=== PATIENT | female | born 1955 | race Caucasian/White ===

== ENCOUNTER 2020-04-11 09:39 | Outpatient (REF) | payer MEDICARE, SELFPAY | END 2020-04-11 09:40 | disposition home or self-care (01) | LOC: HO.HMGCLDS 09:39 | PROVIDERS: PCP Internal Medicine; Visit Provider Internal Medicine | DX: Z20.822 Contact with and (suspected) exposure to COVID-19 (principal) | CPT/HCPCS: 36415; C9803; U0003 ==

== ENCOUNTER 2024-10-12 10:27 | Outpatient (REF) | payer MEDICARE, SELFPAY ==
--- NOTE | ~2024-10-12 | XR_ITS ---
EXAMINATION: XR KNEE, LEFT CLINICAL INFORMATION: M25.562 - Pain in left knee COMPARISON: None available. TECHNIQUE: AP lateral and sunrise views of the left knee. FINDINGS: Joint space narrowing involving mostly the medial compartment and to a lesser extent lateral compartment. Small marginal osteophyte formation and medial tibial plateau with sclerosis along the articular surface of the medial tibial plateau. No acute cortical disruption or gross malalignment. No suprapatellar bursa joint effusion. Vascular calcifications, minimal No lytic or blastic lesions.. 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 Electronically signed by: Connor Castro MD 10/12/2024 11:06 AM EDT
== END 2024-10-12 10:28 | disposition home or self-care (01) ==
LOC: HO.HOSX 10:27
PROVIDERS: Visit Provider Orthopaedic Surgery
DX: S83.242A Other tear of medial meniscus, current injury, left knee, initial encounter (principal); M25.562 Pain in left knee; Z79.899 Other long term (current) drug therapy; X58.XXXA Exposure to other specified factors, initial encounter
CPT/HCPCS: 73562; 99202

== ENCOUNTER 2024-10-12 10:52 | Outpatient (AMB) | payer MEDICARE, SELFPAY ==
--- NOTE | 2024-10-12 11:00 | MHC.OFFVIS ---
Vital Signs 10/12/24 11:07 Height 4 ft 11 in Weight 170 lb BMI 34.3 Intake Visit Reasons: Left knee pain and giving way Intake Note: Delores is a 68 year old female who presents with complaints of progressively worsening left knee pain and giving way. The patient describes her pain as sharp in nature. Her symptoms have gotten worse over the last 2 years. She has failed the last 6 weeks of conservative treatment which has included Tylenol, anti-inflammatory medicines, physical therapy exercises and a home exercise program. She has had both cortisone injections and viscosupplementation injections which gave her minimal relief. She states that her left knee will give out several times per day. Allergies No Known Allergies Allergy (Verified 10/12/24 11:04) Medication List - Last Reconciled 10/12/24 by Eren Malagon MD adalimumab (Humira(CF) Pen) 40 mg subcut Q2W amlodipine 5 mg PO DAILY bupropion HCl SR 200 mg PO BID clonazepam 0.5 mg PO BEDTIME clonidine HCl 0.1 mg PO TID ezetimibe 10 mg PO DAILY insulin aspart U-100 (Novolog U-100 Insulin aspart) subcut omeprazole 20 mg PO DAILY simvastatin 80 mg PO QPM valsartan 160 mg PO DAILY PFSH Social History Alcohol intake: never Patient Tobacco Use Status: Never used Tobacco Current occupational status: other Physical Exam Const Other: Well-nourished well-developed very friendly female awake alert and oriented x3 in no acute distress Extrem Other: Bilateral lower extremity examination shows good capillary refill, no skin lesions noted, normal sensation light touch Left knee examination shows a minimal effusion, mild crepitus with range of motion, tenderness along her medial joint line, positive Fanta's test, no instability Results Reviewed Results Reviewed: X-rays of the patient's left knee show mild diffuse joint space narrowing, no acute bony abnormalities MRI of the patient's left knee shows mild diffuse degenerative changes as well as a medial meniscus tear Assessment & Plan Assessment & Plan (1) Tear of medial meniscus of left knee: Code(s): S83.242A - Other tear of medial meniscus, current injury, left knee, initial encounter Category: Medical Plan Ms. Hu presents with progressively worsening left knee pain and mechanical symptoms due to early degenerative joint disease as well as a medial meniscus tear. I had a lengthy discussion with the patient regarding the treatment options. At this point she has failed continued non operative treatments. The risks and benefits of left knee arthroscopic surgery were discussed at length with the patient. The patient wishes to proceed with surgery. Surgery will involve left knee arthroscopic partial medial meniscectomy. She does understand that she may not get 100% relief of her symptoms depending on the severity of her degenerative changes. She will be scheduled for next available date. She will follow-up as instructed. Feel free to call me at any time should questions regarding her orthopedic management arise. I spent 22 minutes in reviewing the patient's records and imaging studies, seeing the patient and documenting in the medical record. Orders: Orders XR knee LT 3V Today M25.562 - Pain in left knee Coding Level of Care Code New Pt Level 3 (52825) Complex EM visit Add On G2211 Diagnoses Tear of medial meniscus of left knee S83.242A
[2024-10-12 11:07] VITALS: BMI 34.3
--- OUTSIDE RECORDS SUMMARY | 2024-10-12 11:52 | XMS_ITS | Data Portability ---
Author Organization [facility] [email or web address], Telehealth Address [address] [place] [address] Assessment No assessment recorded. Plan of Treatment Reminders Order Date Submit Date Provider Last Modified By Organization Details Last Modified Time Details Appointments None record ed. Lab None record ed. Referral None record ed. Procedures None record ed. Surgeries None record ed. Imaging None record ed. Medication Orders None record ed. Patient TargetsNo targets recorded. Patient InstructionsNo instructions recorded. Reason for Referral None Reported. Problems Name Problem SNOMED Code Status Onset Date Resolution Date Notes Provider Name and Address Organization Details Recorded Time Essential hypertension 70086031 Active 2020 [facility] Daniel Samuels [facility] 1 16:33:55 Hyperlipidemia 41027856 Active 2020 [facility] Daniel Zamora [facility] 1 16:34:00 Anxiety 24422342 Active 2020 [facility] Daniel Zamora [facility] 1 16:34:07 Problem Notes None recorded. Medical Equipment None Reported. Allergies No known drug allergies Medications Name Sig Start Date Stop Date Status Note LastModified by Organization Details LastModified Time simvastatin 10 mg tablet Take 1 tablet every day by oral route. active Not Available Not Available No t Available Wellbutrin SR 100 mg tablet, 12 hr sustained-rel ease Take 1 tablet twice a day by oral route. active Not Available Not Available No t Available amlodipine 10 mg tablet Take 1 tablet every day by oral route. active Not Available Not Available No t Available valsartan 160 mg tablet Take 1 tablet every day by oral route. active Not Available Not Available No t Available Vitals Date Recorded Body height Body mass index (BMI) Body weight Heart rate Respiratory rate Oxygen saturation Oxygen saturation in Arterial blood by Pulse oximetry Systolic And Diastolic Provider Name and Address Organization Details Last Updated DateTime 1 149.86 cm 36.4 kg/m2 54782.6 3 g 90 /min 16 /min 99 % 99 % 138/80 mm[Hg] Le martinez [facility] 16:33:09 Social History Question Answer Notes LastModified by [employer] Details LastModified Time Tobacco Smoking Status Never Smoker Le martinez [facility] Care 03/30/2020 16:34:13 How Much Tobacco Do You Smoke? No [email or web address] Information not available 03/30/2020 Sex: Unknown Functional Status Question Answer Note LastModified by [employer] Details LastModified Time Do you or have you ever used smokeless tobacco? Never used smokeless tobacco [email or web address] Information not available 03/30/2020 Do you or have you ever used e-cigarettes or vape? Never used electronic cigarettes [email or web address] Information not available 03/30/2020 Mental Status None recorded. Family History Relationship Description Onset Age of this Age Resolved Age Notes LastModified by Organization Details LastModified Time Father No current problems or disability [email or web address] Not available 03/30 16:34:10 Mother No current problems or disability Not available 03/30 16:34:10 Medical History Condition Response Diabetes N Anxiety Disorder Y Coronary Artery Disease N Gout N Arthritis N Hyperthyroidism N Cancer N Diverticulitis N Stroke N Asthma N COPD N Hypothyroidism N Depression N Reflux/GERD N High Cholesterol Y Heart Disease N Pulmonary Embolism N Fibromyalgia N Hypertension Y Osteoporosis N Kidney Disease N Gynecological HistoryNo gynecological history recorded. Obstetrics History GPAL:G 0 P 0 0 0 0 Past Encounters Encounter ID Performer Location Encounter Start Date Encounter Closed Date Diagnosis/Indication Diagnosis SNOMED-CT Code Diagnosis ICD10 Code Diagnosis Note [id number] Vikas Alvarez PA-C [facility] [address] [place] [address] 03/30/2020 15:41:48 03/30/2020 18:09:11 Sprain of right knee [id number] S83.91XA likely meniscal irritation /nonspecif ic capsular sprain. rec'd conservati ve therapy, add PT if needed. OTC pain meds PRN. Health Concerns Section Related Observation LastModified by Organization Detai ls LastModified Time None Recorded Concern Status LastModified by Organization Details LastModified Time None Recorded Advance Directives Directive None Recorded Payers Insurance Date Sequence Insurance Name Policy Number Policy Hartman Covered Member ID Hartman Member ID Guarantor Name 03/30/2020 1 MEDICARE B-SC: JERALD ROMOA Delores Hu [id number] Delores Hu 03/30/2020 2 [employer] (MEDICARE SUPPLEMENT) Delores Hu [id number] Delores Hu Notes Date Note Type Note Provider Name and Address Organization Details Recorded Time 03/30/2020 text/html KneeReported bypatient.Notes:In sidious right knee pain over the past week. She's usually very active. ROSS JohnsonC [address] [place], [address], [facility] 04/03/2020 21:03:24 OBGyn Episode No OBEpisode recorded.
--- OUTSIDE RECORDS SUMMARY | 2024-10-12 11:52 | XMS_ITS | Clinical Summary ---
Author Organization [facility] Address [address] [place] [address] Care Team Providers Care Mangle Roller Name Role Phone Ronnie Ross MD Primary Care Provider [phone] Immunizations Name Administration Dates Next Due Pfizer SARS-CoV-2 COVID-19, mRNA, LNP-S, preservative free 06/11/2020,05/20/2020 Surgical History Surgery Date Site/Laterality Comments CHOLECYSTECTOMY PROCEDURE: CO LAPAROSCOPY SURG CHOLECYSTECTOMY TONSILLECTOMY ADENOIDECTOMY, BILATERAL MYRINGOTOMY AND TUBES PROCEDURE: CO TONSILLECTOMY & ADENOIDECTOMY <AGE 10 OTHER SURGICAL HISTORY PROCEDURE:Gastric Sleeve CHOLECYSTECTOMY PROCEDURE:CHOLECYSTECTOMY PANCREAS SURGERY PROCEDURE:PANCREAS SURGERY LAPAROSCOPIC GASTRIC BANDING PROCEDURE:LAPAROSCOPIC PLACEMENT GASTRIC RESTRICTIVE DEVICE Medical History Medical History Date Comments Diabetes mellitus type 2, co ntrolled, with complications (CMS/HCC V24, CMS/[facility] V28) DX:Diabetes mellitus type 2, controlled, with complications ([facility]) Essential hypertension DX:Essent ial hypertension Esophageal reflux DX:Esophageal reflux Hyperlipidemia DX:Hyperlipidemi a Anxiety state DX:Anxiety state Depressive disorder DX:Depressiv e disorder Diabetes mellitus (CMS/HCC V 24, CMS/[facility] V28) DX:Diabetes mellitus ([facility]) High blood pressure DX:High bloo d pressure Psoriasis DX:Psoriasis Peptic ulceration DX:Peptic ulce ration Family History Medical History Relation Name Comments Heart disease Brother Clotting disorder Father Heart disease Father Clotting disorder Mother Diabetes Mother Clotting disorder Sister Heart disease Sister Hyperlipidemia Sister Relation Name Status Comments Brother Father Mother Sister Social History Tobacco Use Types Packs/Day Years Used Date Smoking Tobacco: Former Cigarettes Q uit: 03/23/2003 Smokeless Tobacco: Never Alcohol Use Standard Drinks/Week Comments Not Currently 0 (1 standard drink = 0.6 oz pur e alcohol) Comments Unknown Sex and Gender Information Value Date Recorded Sex Assigned at Not on file Legal Sex Female 10:37 AM EST Gender Identity Not on file Sexual Orientation Not on file Obstetrics History Last Filed Vital Signs Vital Sign Reading Time Taken Comments Blood Pressure 144/73 07/22/2021 2:14 PM EDT Sit ting L Arm Pulse 59 07/22/2021 2:14 PM EDT Temperature - - Respiratory Rate - - Oxygen Saturation - - Inhaled Oxygen Concentration - - Weight 89.8 kg (198 lb) 02/19/2022 9:38 AM EST Height 149.9 cm (4' 11 ) 02/19/2022 9:38 AM EST Body Mass Index 39.99 02/19/2022 9:38 AM EST Plan of Treatment Health Maintenance Due Date Last Done Comments Breast Cancer Screening 1955 DTaP,Tdap,and Td Vaccines (1 - Tdap) 1972 Pneumococcal Vaccine: 50+ Years (1 of 1 - PCV) 11/22/2003 Zoster Vaccines (1 of 2) 11/22/2003 Cholesterol Screening (Lipid Panel) 02/18/2022 Colorectal Cancer Screening: Colonoscopy 02/18/2022 Falls Risk Assessment 02/18/2022 Hepatitis C Screening 02/18/2022 Osteoporosis Screening (Bone Density Screening) 02/18/2022 Social Influencers of Health Screening 02/18/2022 Hypertension/CHF/CAD Annual BMP Blood Test 03/06/2022 COVID-19 Vaccine (3 - 2023-2 5 season) 2023 06/11/2020, 05/20/2020 Depression Screening 03/23/2024 Influenza Vaccine (#1) 2024 RSV Immunization Adult Patients (1 - 1-dose 75+ series) 2028 HIB Vaccines Aged Out No longer eligi ble based on patient's age to complete this topic HPV Vaccines Aged Out No longer eligi ble based on patient's age to complete this topic Hepatitis A Vaccines Aged Out No long er eligible based on patient's age to complete this topic Hepatitis B Vaccines Aged Out No long er eligible based on patient's age to complete this topic IPV Vaccines Aged Out No longer eligi ble based on patient's age to complete this topic MMR Vaccines Aged Out No longer eligi ble based on patient's age to complete this topic Meningococcal ACWY Vaccine Aged Out N o longer eligible based on patient's age to complete this topic Meningococcal B Vaccine Aged Out No l onger eligible based on patient's age to complete this topic RSV Immunization Patients Under 20 months Aged Out No longer eligible b ased on patient's age to complete this topic Varicella Vaccines Aged Out No longer eligible based on patient's age to complete this topic Care Teams Mangle Roller Relationship Specialty Start Date End Date Ronnie Ross MD PCP - General 02/04/22
--- OUTSIDE RECORDS SUMMARY | 2024-10-12 11:52 | XMS_ITS | Patient Health Record ---
Author Organization [facility] Address [address] [facility] [address] Care Team Providers Care Inspector Automatic Typewriter Name Role Phone Ronnie Ross MD Primary Care Provider Unavailab Lance Ordaz Unavailable [phone] Reason For Referral No Information Medications Medication SIG (Take, Route, Frequency, Duration) Notes Start Date End Date Status Ezetimibe-Simvastatin 10-80 MG Orally Once a day Active Lantus Active NovoLOG Active clonazePAM 0.5 MG Orally PRN A ctive Irbesartan 300 MG Orally Ac tive Omeprazole 20 MG Orally Act gita buPROPion HCl 200 MG Orally Twice a day Active Social History Tobacco Use: Social History Observation Description Date Details (start date - stop date) Former Smoker NA - NA Tobacco Use/Smoking Question Answer Notes Are you a: former smoker Additional Findings: Tobacco Non-User Current no n-smoker Alcohol Screen Question Answer Notes Did you have a drink containing alcohol in the p ast year? No Points 0 Interpretation Negative Tobacco use other than smoking: Question Answer Notes Are you an other tobacco user? No Problems Problem Type SNOMED Code ICD Code Onset Dates Problem Status W/U Status Risk Notes Problem Plantar fascial fibromatosis (84934517) Plantar fascial fibromatosis (M72.2) Active confirmed Problem Type II diabetes mellitus without complication (720761223) Diabetes mellitus type 2, controlled, without complications (E11.9) Active confirmed Plan Of Treatment No Information Insurance Providers Payer Name Payer Address Payer Phone Subscriber Number Group Number Insured Name Patient Relationship to Insured Coverage Start Date Coverage End Date Medicare National [employer] [address] [facility] [address] [id number] Delores Jerry Self - patient is the insured 6 Medical (General) History Medical History History ICD Code Anxiety disorder Back,Hip,and Knee pain Diabetic Measles Chicken pox Hypertension Kidney disease Psoriasis/eczema Reflux ( GERD) Surgical History Surgery Date(Month/Year) pancreatectomy 2012 lap band 2007 cholecystectomy 2001 Lap Band Removal 2012
--- OUTSIDE RECORDS SUMMARY | 2024-10-12 11:52 | XMS_ITS | Clinical Summary ---
Author Organization [facility] Address [address] [place] [address] Care Team Providers Care Diversity Intern Name Role Phone Ronnie Ross MD Primary Care Provider Unavail able Allergies Active Allergy Reactions Criticality Noted Date Comments Pollen Extract 07/03/2020 Medications Medication Sig Dispensed Refills Start Date End Date Status acetaminophen (TYLENOL EXTRA STRENGTH) 500 MG tablet 0 07/29/2021 Active amLODIPine (NORVASC) tablet 5 mg Take 1 tablet (5 mg total) by mouth daily. 0 06/01/2020 Active apixaban (ELIQUIS) 5 MG TABS tablet Take 1 tablet (5 mg total) by mouth. 0 05/29/2020 Active buPROPion (WELLBUTRIN SR) 200 MG 12 hr tablet Take 1 tablet (200 mg total) by mouth. 0 03/31/2013 Active clonazePAM (KlonoPIN) 0.5 MG tablet Take 1 tablet (0.5 mg total) by mouth. 0 05/03/2014 Active cloNIDine (CATAPRES) tablet 0.1 mg Take 1 tablet (0.1 mg total) by mouth. 0 06/01/2020 Active ezetimibe (ZETIA) tablet 10 mg Take 1 tablet (10 mg total) by mouth. 0 07/17/2021 Active ezetimibe-simvastatin (VYTORIN) tablet 10-80 mg Take 1 tablet by mouth every night at bedtime. 0 Active Insulin Pen Needle (B-D ULTRAFINE III SHORT PEN) 31G X 8 MM MISC USE WITH INSULIN PENS FOUR TIMES DAILY 0 07/14/2019 Active ketoconazole (NIZORAL) 2 % cream APPLY CREAM TOPICALLY TO AFFECTED AREA TWICE DAILY 0 02/08/2022 Active metoprolol succinate (TOPROL-XL) 24 hr tablet 50 mg Take 1 tablet (50 mg total) by mouth daily. 0 12/06/2021 Active vzvkjvkt-auopilynr-bz drocortisone (CORTISPORIN) 3.5-53198-[address] 4 drops in ear(s). 0 08/02/2021 Active nystatin (MYCOSTATIN) cream APPLY CREAM TOPICALLY TO AFFECTED AREA TWICE DAILY 0 01/07/2022 Active pancrelipase, Nou-Pmvj-Zgpf, (Creon) [address] units CPEP 0 01/11/2020 Active omeprazole (PriLOSEC) 20 MG capsule 1 capsule (20 mg total). 0 08/09/2018 Active valACYclovir (VALTREX) 500 MG tablet TAKE 1 TABLET BY MOUTH DAILY FOR 3 DAYS FOR OUTBREAK 0 12/04/2021 Active simvastatin (ZOCOR) tablet 10 mg daily. 0 Active valsartan (DIOVAN) tablet 160 mg daily. 0 11/19/2020 Active Family History Medical History Relation Name Comments Heart disease Brother Clotting disorder Father Heart disease Father Clotting disorder Mother Diabetes Mother Clotting disorder Sister Heart disease Sister Hyperlipidemia Sister Relation Name Status Comments Brother Father Mother Sister Social History Tobacco Use Types Packs/Day Years Used Date Smoking Tobacco: Former Cigarettes Q uit: 2004 Smokeless Tobacco: Never Tobacco Cessation:Counseling Given: Not Answered Alcohol Use Standard Drinks/Week Comments Not Currently 0 (1 standard drink = 0.6 oz pur e alcohol) Sex and Gender Information Value Date Recorded Sex Assigned at Not on file Gender Identity Not on file Sexual Orientation Not on file Job Start Date Occupation Industry Not on file Not on file Not on file Last Filed Vital Signs Vital Sign Reading Time Taken Comments Blood Pressure - - Pulse - - Temperature - - Respiratory Rate - - Oxygen Saturation - - Inhaled Oxygen Concentration - - Weight 89.8 kg (198 lb) 02/19/2022 9:38 AM EST Height 149.9 cm (4' 11 ) 02/19/2022 9:38 AM EST Body Mass Index 39.99 02/19/2022 9:38 AM EST Plan of Treatment Health Maintenance Due Date Last Done Comments Hepatitis C Screening 1955 Depression Screening 1965 BMI Counseling 11/22/1971 Preventative Health Evaluation 11/22/1971 DTap / Tdap / Td (1 - Tdap) 1972 Colon Cancer Screening (Colonoscopy) 1998 Breast Cancer Screening (Mammogram) 11/22/2003 Shingrix-Zoster Vaccine (1 o f 2) 11/22/2003 Fall Risk Assessment 2018 Osteoporosis Screening (DEXA Scan) 2018 Pneumococcal Vaccine (1 of 1 - PCV) 2018 COVID-19 Vaccine (3 - 2023-2 5 season) 2023 06/11/2020, 05/20/2020 Influenza Vaccine (#1) 2024 RSV Adult > 60+ Yrs or (1 - 1-dose 75+ series) 2028 Hepatitis B Vaccines Aged Out No long er eligible based on patient's age to complete this topic RSV Ped < 20 months Aged Out No longe r eligible based on patient's age to complete this topic Care Teams Diversity Intern Relationship Specialty Start Date End Date Ronnie Ross MD PCP - General Internal Medicine 02/04/22
--- OUTSIDE RECORDS SUMMARY | 2024-10-12 11:52 | XMS_ITS ---
Author Name [facility] Organization Unknown Care Team Organization Name Specialty Phone Email Start Date End Da te [facility] 02/20/2022
--- OUTSIDE RECORDS SUMMARY | 2024-10-12 11:52 | XMS_ITS | Patient Health Record ---
Author Organization [facility] Address [address] [place] [address] Care Team Providers Care Front Window Cashier Name Role Phone Ronnie Ross MD Primary Care Provider Unavailab Kurt Valentino Unavailable [phone] Reason For Referral No Information Medications Medication SIG (Take, Route, Fr equency, Duration) Notes Start Date End Date Status hydroCHLOROthiazide Active buPROPion HCl Active Lantus Active HumaLOG Active Vytorin Active Viokace Active Omeprazole Active Diovan Active clonazePAM Active Metoprolol Succinate Active Invokana Active Problems Problem Type SNOMED Code ICD Code Onset Dates Problem Status W/U Status Risk Notes Problem [id number] Encounter for screening for malignant neoplasm of colon (Z12.11) Active confirmed Problem 061045432 History of adenomatous polyp of colon (Z86.010) Active confirmed Problem 348417137 Other chronic pancreatitis (K86.1) Active confirmed Problem Encounter for screening for malignant neoplasm of rectum (Z12.12) Active confirmed Problem 95578704 Preprocedural examination (Z01.818) Active confirmed Plan Of Treatment Future Test Test Name Order Date COLONOSCOPY 09/13/2015 Insurance Providers Payer Name Payer Address Payer Phone Subscriber Number Group Number Insured Name Patient Relationship to Insured Coverage Start Date Coverage End Date [facility] [address] [place] [address] [id number] ASHLEY KO Self - patient is the insured MEDICAID OF [facility] [address] [place] [address] [id number] ASHLEY KO Self - patient is the insured Medical (General) History Medical History History ICD Code Colonoscopy 06-06-2010 and 2004 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 Wills IDDM Kidney stones Pneumonia Pulmonary embolus in 2014--finished Coum joe in 02/2015 Denies DC,CVA,renal disease Told of enmphysema Surgical History Surgery Date(Month/Year) Laparoscopic cholecstectomy Lap Band--removed during pancreas surger y Pancreas surgery with Dr. Machado at [facility] for pseudocysts approx 2013
--- OUTSIDE RECORDS SUMMARY | 2024-10-12 11:53 | XMS_ITS | Clinical Summary ---
Author Organization [facility] Address [address] [place] [phone] Phone Care Team Providers Care Copper Flotation Operator Name Role Phone Ronnie Ross MD Primary Care Provider [phone] Allergies Active Allergy Reactions Criticality Noted Date Comments Pollen Extract 07/03/2020 Medications NovoLOG FLEXPEN 100 UNIT/ML injection Inject 4-10 Units under the skin 3 (three) times a day before meals 09/19/2020 Active omeprazole (PriLOSEC) [address] capsule Take 20 mg by mouth 1 (one) time each day Do not crush or chew. Active buPROPion SR (WELLBUTRIN SR) 200 MG 12 hr tablet Take 200 mg by mouth in the morning and 200 mg in the evening. Do not crush, chew, or split. . Active amLODIPine (NORVASC) 5 MG tablet Take 5 mg by mouth 1 (one) time each day Active pancrelipase, Crr-Cqcm-Rsds, (CREON) 34[address] units capsule Take 1 capsule by mouth 3 (three) times a day with meals Active ezetimibe-simva statin (VYTORIN) 10-80 MG per tablet Take 1 tablet by mouth every night Active cloNIDine (CATAPRES) 0.1 MG tablet Take 0.1 mg by mouth 3 (three) times a day Active apixaban (ELIQUIS) 5 MG tablet Take 5 mg by mouth 2 (two) times a day Active metoprolol tartrate 25 MG tablet Take 50 mg by mouth 2 (two) times a day if needed Active clonazePAM (KlonoPIN) 0.5 MG tablet Take 0.5 mg by mouth every night Active valsartan (DIOVAN) 160 MG tablet Take 1 tablet by mouth 1 (one) time each day 11/19/2020 Active Active Problems Problem Noted Date Diagnosed Date Depressive disorder 06/07/2021 Tachycardia-bradycardia 03/18/2021 Overview (06/10/2021): Last Assessment & Plan: On my current evaluation, the patient is in a sinus rhythm, with rate ranging from 30s to 100s. The ER physician noted pauses on the monitor earlier. She did receive Cardizem 24 mg IV, followed by a continuous infusion of 5 mg/h for about half an hour and then 2.5 mg/h for another half hour. She also initially received metoprolol 2.5 mg IV and 25 mg orally. Bradycardia and pauses could certainly be secondary to the medications, but also raises concern for sick sinus syndrome and tachy-abhinav syndrome. The patient appears euvolemic on exam. Awaiting chest xray. 1. Observation on the medical floor 2. Hold AV patrice blocking agents given profound bradycardia and pauses; pacer pads will be applied and atropine will be kept at the bedside as needed 3. Hold other blood pressure agents given intermittent bradycardia, pauses, and hypotension 4. The patient will be kept n.p.o. after midnight in the event that she needs an urgent cardiac procedure 5. Hold Eliquis in the event that the patient needs an urgent cardiac procedure 6. Metabolic work-up is unremarkable, check TSH 7. Check cardiac enzymes; the patient denies chest pain and does not have overt ischemic changes on EKG 8. Formal cardiology consultation pending Hypertension 10/22/2020 Stage 3a chronic kidney disease 10/22/2020 Acute nontraumatic kidney injury 05/28/2020 Overview (10/10/2020): Last Assessment & Plan: Patient's baseline creatinine is 1.1-1.2 Was 1.5 on admission, 1.3 this morning, closer to baseline. Hypertensive disorder 12/03/2018 Overview (10/10/2020): Last Assessment & Plan: Diltiazem and valsartan restarted, with blood pressure remaining stable. Systolic blood pressure in the 120s to 130s today. Resolved Problems Problem Noted Date Diagnosed Date Resolved Date Disorder of pancreas 06/07/2021 022 Disorder of kidney 06/07/2021 Paroxysmal supraventricular tachycardia 07/04/2020 10/10/2020 Overview (10/10/2020): Last Assessment & Plan: The patient presents with the sudden onset of palpitations and found to be in SVT for 2-20 beats per minutes and brief episode of A. fib following this. Notably she is also had a week of feeling winded and 2 days of feeling off . BMP normal, glucose 85. Calcium 9.1. CBC normal. EKG showing mild questionable edema. The patient was placed on IV diltiazem therapy and converted to sinus rhythm overnight, evidence of low short RP narrow complex ventricular tachycardia which was felt to contribute to brief episodes of A. fib from atrial irritation per cardiology. 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 PA systolic pressure could not be calculated. Plan is for EP study and radiofrequency ablation this Thursday at [facility] with loop recorder implant. Cardiology recommended starting apixaban and giving Lopressor 12.5 mg twice daily as needed for palpitations. Obstructive sleep apnea 05/28/202009/21 Overview (10/10/2020): Last Assessment & Plan: The patient describes having had a preliminary sleep study 2 years ago that was abnormal. She did not have follow-up but now has an upcoming appointment with her PCP to discuss this further. She is encouraged to keep this appointment Anxiety 03/30/2020 01/18/2021 Acute recurrent pancreatitis 05/15/2019 10/10/2020 Overview (10/10/2020): Last Assessment & Plan: Acute pancreatitis, recurrent, with concern for possible drug-induced pancreatitis versus pancreatic ductal stones. Patient has had pancreatic ductal stones that were removed surgically, underwent pancreaticojejunostomy. GI recommended MRCP which patient adamantly refuses. Recommended that when she stable for discharge should see Dr. Wills at [facility] for consideration of repeat endoscopic ultrasound to look for any evidence of pancreatic ductal stones. Remains afebrile with vital signs stable. Diet was advanced by GI but still with limited oral intake. She did see Dr. Reyes this morning, hoping to try to eat more for breakfast. -HCTZ and statin remain on hold. -Medication adjustments today to try to change her over to oral medications. Tylenol scheduled every 6 hours. I did give 1 dose of IV Toradol. Oral dilaudid 2 mg every 4 hours for moderate pain, 4 mg for severe pain. Bacteremia 12/04/2018 10/10/2020 Overview (10/10/2020): Last Assessment & Plan: Patient with 3 out of 4 positive blood culture bottles from overnight. Positive lactose underwriting service representative which means it is in the E. coli family, (Pseudomonas unlikely). CT scan has no evidence of pancreatic necrosis or pseudocyst at this time. There is no obvious source of gram-negative bacteremia, but bacteremia may occur based on pancreatitis alone. I agree with the Pip/ tazo for now. Await further ID of GNR. F/u Bcs drawn. Rec US of kidneys, for further eval of R kidney which has perinephric stranding. UA unremarkable so UC was not done. Pt does not have urinary symptoms, x R flank pain. Acute on chronic pancreatitis 12/03/2018 10/10/2020 Overview (10/10/2020): Last Assessment & Plan: Pt has a hx of chronic pancreatitis with multiple episodes of acute flares, most recently 2 years ago. She presented with epigastric pain radiating to the back/side, nausea/vomiting, and fever. -CT abdomen/pelvis showed acute on chronic pancreatitis, atrophy of right kidney, and possible uterine fibroid unchanged since 2017. Admitted for management of acute on chronic pancreatitis. Pt denies change in medications or diet, denies alcohol use. Pt underwent cholecystectomy in 2007, ruling out cholelithiasis as cause of pancreatitis. -Patient on clear liquid diet but trial yesterday of juice and hien kiersten poorly tolerated. Water only at this point. -GI following. Case discussed today with Dr. Madera. -lipase 39 --> 20. Amylase 30. Alk phos elevated -lipid panel shows normal triglycerides, ruling out hyperglyceridemia as cause of pancreatitis -tylenol, diaudid for pain -[place] score of 2 upon admission, given age >55 and glucose >200. Score 3 at 48 h given Hct decreased >10% (37.3 --> 32.3), although this could be dilutional. Hyperlipidemia 12/03/2018 10/10/2020 Overview (10/10/2020): Last Assessment & Plan: The patient is on extremely continue simvastatin Psoriasis 12/03/2018 10/10/2020 Overview (10/10/2020): Last Assessment & Plan: Pt has a hx of psoriasis managed by computer technician, whom she has seen recently. -Continue betamethasone cream Type 2 diabetes mellitus without complication 12/04/19 19 10/10/2020 Overview (10/10/2020): Last Assessment & Plan: Patient suffers from insulin-dependent diabetes and by her description has poor diabetic control. She is quite sedentary and admits she does not follow a very good diet. She should be encouraged to begin a walking program and a nutrition consult has been requested. Immunizations Immunization Administration Dates Next Due Pfizer SARS-COV-2 06/11/2020,05/20/2020 Family History Medical History Relation Comments Cancer Brother Heart disease Brother Hypertension Child Heart disease Father Diabetes Mother Cancer Sister Heart disease Sister Hypertension Sister Kidney disease Sister Relation Status Comments Brother Child Father Mother Sister Social History Tobacco Use Types Packs/Day Years Used Date Smoking Tobacco: Never Smokeless Tobacco: Never Alcohol Use Standard Drinks/Week Comments Never 0 (1 standard drink = 0.6 oz pur e alcohol) Comments Unknown Sex and Gender Information Value Date Recorded Sex Assigned at Not on file Legal Sex Female 9:52 AM EDT Gender Identity Not on file Sexual Orientation Not on file Last Filed Vital Signs Vital Sign Reading Time Taken Comments Blood Pressure 112/60 06/10/2021 1:13 PM EDT Pulse 67 06/10/2021 1:13 PM EDT Temperature - - Respiratory Rate - - Oxygen Saturation 96% 01/21/2021 1:37 PM EDT Inhaled Oxygen Concentration - - Weight 96.2 kg (212 lb) 06/10/2021 1:13 PM EDT Height - - Body Mass Index - - Plan of Treatment Health Maintenance Due Date Last Done Comments Breast Cancer Screening 1955 Pneumococcal Vaccine: 50+ Ye ars (1 of 2 - PCV) 1972 Colorectal Cancer Screening: Annual FOBT 2002 Colorectal Cancer Screening: Colonoscopy 2002 Colorectal Cancer Screening: Sigmoidoscopy 2002 Influenza Vaccine (#1) 2024 Hepatitis B Vaccine Aged Out No longe r eligible based on patient's age to complete this topic Insurance Medicare [facility] Medicare [facility] Care Teams Copper Flotation Operator Relationship Specialty Start Date End Date Ronnie Ross MD [address] [id number] PCP - General Internal Medicine 10/22/20
== END 2024-10-12 11:20 | disposition home or self-care (01) ==
LOC: HO.HOS 10:52
PROVIDERS: PCP Internal Medicine; Visit Provider Orthopaedic Surgery
DX: S83.242A Other tear of medial meniscus, current injury, left knee, initial encounter (principal)
CPT/HCPCS: 99203; G2211

== ENCOUNTER → 2024-10-12 10:53 | Outpatient (BNV) | payer MEDICARE, SELFPAY | PROVIDERS: Visit Provider Radiology Diagnostic Radiology | DX: M17.12 Unilateral primary osteoarthritis, left knee (principal) | CPT/HCPCS: 73562 ==